=== PATIENT | female | born 1935 | race Caucasian/White ===

== ENCOUNTER 2019-03-03 08:52 | Emergency (ER) | payer OTHER ==
[~2019-03-03] VITALS: Ht 154.9 cm; Wt 81.7 kg
[~2019-03-03 08:52] MED LIST: APAP650 PO; ASPIR 8181 MG PO; CALCIUM 600 +1 EAC5 PO; CARDIZEM CD120 MG PO; CEFTIN 250 MG250 MG PO; CENTRUM SILVER1 EAC4 PO; CITRACAL PETITES PO; COUMADIN 2.5MG2.5 M1; COUMADIN 4 MG TA4 M1 PO; FEOSOL325 M1 PO; FEOSOL325 MG PO; FISH OIL 1,0001 EAC5 PO; FISH OIL 1,2001 EAC3 PO; FLAGYL500 MG PO; FLONASE 0.05%50 MCG NASAL; GINGER500 MG PO; GLUCOSAMINE-CH1 EA19 PO; IMURAN 50MG TAB50 M1 PO; LEVOTHYROXIN0.025 MG PO; LEVOXYL25 MCG PO; LIPITOR 20 MG T20 M1 PO; LISINOPRIL20 MG PO; MAALOX MAXIMUM355 ML PO; MIRALAX255 GM PO; MOBIC15 MG PO; MULTIVITAMIN W1 EAC5 PO; NIACIN 100MG T100 M1 PO; OMEPRAZOLE; OXYBUTYNIN CHLOR5 M1 PO; POTASSIUM GLUCO99 M2 PO; PREDNISONE 10 M10 M1 PO; PREDNISONE 10 M10 MG; PRILOSEC OTC20 MG PO; TRAMADOL 50 MG50 MG PO; TUMS PO; TYLENOL EX-STR500 M1 PO; VITAMIN C + RO500 MG PO; VITAMIN D 11000 UNIT PO; VITAMIN D1000 UNI1 PO; ZOCOR 20 MG TAB20 M1 PO; ZOFRAN ODT4 MG PO; [UNRECOGNIZED DRUG - CODE] PO
[2019-03-03 11:10] LABS: INR 2.9; PROTIME 30.3 Seconds (9.3-11.4)
[2019-03-03 11:57] VITALS: BP 136/96
== END 2019-03-03 11:58 | disposition home or self-care (01) ==
LOC: ER 08:52
PROVIDERS: Emergency Medicine
DX: S20.211A Contusion of right front wall of thorax, initial encounter (principal); S90.01XA Contusion of right ankle, initial encounter; I48.91 Unspecified atrial fibrillation; Z88.6 Allergy status to analgesic agent; Z88.1 Allergy status to other antibiotic agents; Z88.2 Allergy status to sulfonamides; Z88.8 Allergy status to other drugs, medicaments and biological substances; W00.2XXA Other fall from one level to another due to ice and snow, initial encounter; Y93.89 Activity, other specified; Y92.89 Other specified places as the place of occurrence of the external cause; Y99.8 Other external cause status